=== PATIENT | female | born 1995 | race African-American/Black ===

== ENCOUNTER 2017-08-13 14:14 | Emergency (ER) | payer SELFPAY ==
[2017-08-13 14:21] VITALS: BP 114/64; BMI 21.4
[2017-08-13 15:28] LABS: BILIRUBIN,URINE 1+ (NEGATIVE); BLOOD/HEMOGLOBIN,URINE 3+ (NEGATIVE); GLUCOSE, URINE NEGATIVE (NEGATIVE); KETONES,URINE NEGATIVE (NEGATIVE); LEUKOCYTE ESTERASE ,URINE 2+ (NEGATIVE); NITRITES,URINE NEGATIVE (NEGATIVE); PROTEIN,URINE 2+ (NEGATIVE); UROBILINOGEN,URINE 1+ (NORMAL)
[2017-08-13 15:35] LABS: APPEARANCE,URINE HAZY (CLEAR); COLOR,URINE DARK YELLOW (YELLOW)
[2017-08-13 15:36] LABS: BACTERIA,URINE 1+ /HPF (NEGATIVE); MUCUS,URINE MODERATE /HPF (NEGATIVE); SQUAMOUS EPITHELIAL CELL,UR MANY /HPF (NEGATIVE)
[2017-08-13 16:24] LABS: BASOPHILS % (AUTO) 0.3 % (0.2-1.0); EOSINOPHILS # (AUTO) 0.1 x10^3/uL (0.0-0.2); EOSINOPHILS % (AUTO) 1.3 % (0.9-2.9); HEMATOCRIT 30.6 % (36.0-47.0); HEMOGLOBIN 9.8 g/dL (12.0-16.0); LYMPHOCYTES # (AUTO) 2.3 X10^3/uL (1.3-2.9); LYMPHOCYTES % (AUTO) 21.6 % (21.0-51.0); MEAN CORPUSCULAR HEMOGLOBIN 25.1 pg (27.0-34.0); MEAN CORPUSCULAR HGB CONC 32.2 g/dL (33.0-35.0); MEAN CORPUSCULAR VOLUME 77.8 fL (80.0-100.0); MEAN PLATELET VOLUME 7.5 fL (7.4-11.0); MONOCYTES % (AUTO) 8.9 % (0.0-13.0); NEUTROPHILS # (AUTO) 7.2 x10^3/uL (2.2-4.8); NEUTROPHILS % (AUTO) 67.9 % (42.0-75.0); PLATELET COUNT 321 X10^3/uL (150.0-450.0); RED BLOOD COUNT 3.93 X10^6/uL (3.5-5.4); RED CELL DISTRIBUTION WIDTH 15.8 % (11.6-16.5); WHITE BLOOD COUNT 10.7 X10^3/uL (3.6-10.0)
[2017-08-13 16:31] LABS: BLOOD UREA NITROGEN 11 mg/dL (7-18); CALCIUM 8.4 mg/dL (8.5-10.1); CARBON DIOXIDE 29.4 mmol/L (21-32); CHLORIDE 102 mmol/L (98-107); SODIUM 137 mmol/L (136-145); eGFR BLACK RACES > 60 (>60); eGFR NON BLACK RACES > 60 (>60)
[2017-08-13 16:36] LABS: HYPOCHROMASIA SLIGHT; PLATELET MORPHOLOGY COMMENT NORMAL (NORMAL)
--- NOTE | 2017-08-13 16:50 | ED.ABDFE ---
HPI - Time seen Time seen: 16:30 - PCP Primary Care Physician: NFD - Complaint Chief Complaint Doctors Comments: Patient presents with complaint of abdominal pain of acute onset. Sharp in character, duration since this AM, denies fever, vomiting or diarrhea. Chief Complaint:: PT C/O SUPRA PUBIC PAIN THAT STARTED LASTNIGHT AND PT DENIES ANY N/V/D OR PROBLEMS VOIDING ... PT C/O SHARP PAINS THAT STAY.. - Source History Provided: Patient - Mode of arrival Mode of Arrival: Ambulatory - Timing Onset of Chief Complaint: 08/12/17 PMH - PMH Past Medical History: No Past Surgical History: No - Family History History of Family Medical Conditions: No - Social History Does patient currently use any type of tobacco product: No Have you used tobacco products in the last 12 months: No Type of Tobacco Use: None Does any household member use tobacco: No Alcohol Use: None Do you use any recreational Drugs:: No Lives With: Family Lives Where: Home - infectious screening In the last 2 months have you had wt loss of >10#?: NO Have you had fever, night sweats or hemotysis?: No Have you traveled outside the country in the last 6 months?: No Isolation: Standard ROS - Review of Systems Eyes: No Symptoms Reported ENTM: No Symptoms Reported Respiratoy: No Symptoms Reported Cardiovascular: No Symptoms Reported Gastrointestinal/Abdominal: No Symptoms Reported Genitourinary: No Symptoms Reported Neurological: No Symptoms Reported Musculoskeletal: No Symptoms Reported Integumentary: No Symptoms Reported Hematologic/Lymphatic: No Symptoms Reported Endocrine: No Symptoms Reported Psychiatric: No Symptoms Reported All Other Systems: Reviewed and Negative PE - Vital Signs Vitals: Temperature 98.2 F Pulse Rate 83 Respiratory Rate 20 Blood Pressure 114/64 O2 Sat by Pulse Oximetry 100 - General General Appearance: Alert, In No Apparent Distress - Head Head Exam: Normal Inspection, Atraumatic - Eyes Eye exam: Normal Appearance, PERRL, EOMI - ENT ENT Exam: Normal Exam - Neck Neck Exam: Normal Inspection - Chest Chest Inspection: Normal Inspection - Respiratory Respiratory Exam: Normal Lung Sounds Bilat Respiratory Exam: Bilateral Clear to Auscultation - Cardiovascular Cardiovascular Exam: Regular Rate, Normal Rhythm - Abdominal Exam Abdominal Exam: Tenderness (LLQ) Abdominal Tenderness: LLQ - Rectal Rectal Exam: Deferred - Back Back Exam: Normal Inspection - Extremeties Extremities Exam: Normal Inspection - External Exam: Female: Deferred : Speculum Exam (Female): Deferred : Bimanual Exam (female): Deferred - Neurologic Neurological Exam: Alert, Oriented X3, CN II-XII Intact - Psychiatric Psychiatric Exam: Normal Affect - Skin Skin Exam: Warm, Dry Course - Reevaluation 1st: Improved ROR - Labs Reviewed Result Diagrams: 08/13/17 16:15 08/13/17 16:15 Laboratory: WBC 10.7 X10^3/uL (3.6-10.0) H 08/13/17 16:15 RBC 3.93 X10^6/uL (3.5-5.4) 08/13/17 16:15 Hgb 9.8 g/dL (12.0-16.0) L 08/13/17 16:15 Hct 30.6 % (36.0-47.0) L 08/13/17 16:15 MCV 77.8 fL (80.0-100.0) L 08/13/17 16:15 MCH 25.1 pg (27.0-34.0) L 08/13/17 16:15 MCHC 32.2 g/dL (33.0-35.0) L 08/13/17 16:15 RDW 15.8 % (11.6-16.5) 08/13/17 16:15 Plt Count 321 X10^3/uL (150.0-450.0) 08/13/17 16:15 Plt Count Comment Adequate (ADEQUATE) 08/13/17 16:15 MPV 7.5 fL (7.4-11.0) 08/13/17 16:15 Neut % (Auto) 67.9 % (42.0-75.0) 08/13/17 16:15 Lymph % (Auto) 21.6 % (21.0-51.0) 08/13/17 16:15 [place] % (Auto) 8.9 % (0.0-13.0) 08/13/17 16:15 Eos % (Auto) 1.3 % (0.9-2.9) 08/13/17 16:15 Baso % (Auto) 0.3 % (0.2-1.0) 08/13/17 16:15 Neut # (Auto) 7.2 x10^3/uL (2.2-4.8) H 08/13/17 16:15 Lymph # (Auto) 2.3 X10^3/uL (1.3-2.9) 08/13/17 16:15 [place] # (Auto) 1.0 x10^3/uL (0.3-0.8) H 08/13/17 16:15 Eos # (Auto) 0.1 x10^3/uL (0.0-0.2) 08/13/17 16:15 Baso # (Auto) 0.0 X10^3/uL (0.0-0.1) 08/13/17 16:15 Absolute Nucleated RBC 0.0 /100WBC 08/13/17 16:15 Plt Morphology Comment Normal (NORMAL) 08/13/17 16:15 RBC Morphology Abnormal (NORMAL) A 08/13/17 16:15 Hypochromasia Slight A 08/13/17 16:15 Sodium 137 mmol/L (136-145) 08/13/17 16:15 Corrected Sodium TNP 08/13/17 16:15 Potassium 3.6 mmol/L (3.5-5.1) 08/13/17 16:15 Chloride 102 mmol/L (98-107) 08/13/17 16:15 Carbon Dioxide 29.4 mmol/L (21-32) 08/13/17 16:15 BUN 11 mg/dL (7-18) 08/13/17 16:15 Creatinine 0.70 mg/dL (0.55-1.02) 08/13/17 16:15 Est GFR (MDRD) Af Amer > 60 (>60) 08/13/17 16:15 Est GFR (MDRD) Non-Af > 60 (>60) 08/13/17 16:15 Glucose 89 mg/dL (65-99) 08/13/17 16:15 Calcium 8.4 mg/dL (8.5-10.1) L 08/13/17 16:15 C-Reactive Protein 54.10 mg/L (0-3.0) H 08/13/17 16:15 HCG, Qual Negative <10 mIU/mL 08/13/17 16:15 Specimen Type Random urine 08/13/17 15:18 Urine Color Dark yellow (YELLOW) 08/13/17 15:18 Urine Appearance Hazy (CLEAR) 08/13/17 15:18 Urine pH 6.0 (5.0 - 8.0) 08/13/17 15:18 Ur Specific [place] 1.020 (1.000-1.030) 08/13/17 15:18 Urine Protein 2+ (NEGATIVE) 08/13/17 15:18 Urine Glucose (UA) Negative (NEGATIVE) 08/13/17 15:18 Urine Ketones Negative (NEGATIVE) 08/13/17 15:18 Urine Occult Blood 3+ (NEGATIVE) 08/13/17 15:18 Urine Nitrite Negative (NEGATIVE) 08/13/17 15:18 Urine Bilirubin 1+ (NEGATIVE) 08/13/17 15:18 Urine Urobilinogen 1+ (NORMAL) 08/13/17 15:18 Ur Leukocyte Esterase 2+ (NEGATIVE) 08/13/17 15:18 Urine RBC 8-10 /HPF (NONE SEEN) 08/13/17 15:18 Urine WBC 5-7 /HPF (NONE SEEN) 08/13/17 15:18 Ur Squamous Epith Cells Many /HPF (NEGATIVE) 08/13/17 15:18 Urine Bacteria 1+ /HPF (NEGATIVE) 08/13/17 15:18 Urine Mucus Moderate /HPF (NEGATIVE) 08/13/17 15:18 Ur Culture Indicated? No/not indicated 08/13/17 15:18 - XRAY XRAY Interpreted by: Radiologist (CT Abd/pel w/o contrast:The liver, gallbladder , spleen,adrenal glands, kidneys, pancreas, stomach and small bowel show no acute abdomality. No acute colonic abnormality identified. There is circumaortic left renal vein incidentally noted. Vasculature is otherwise normal. The appendix is normal. Pelvis: The uterus and urinary bladder appear normal. The ructum is normal. There is small to moderate free fluid in the pelvis and peripherally enhancing right cyst with adjacent fluid compatible with corpus luteum cyst or hemorrhagic cyst, possible partially ruptured. Small left ovarian cyst also supected. Impression: Free fluid in the pelvis with large peripherally enhancing right ovarian cyst, possible corpus luteum cyst, possible recently ruptured. Gynecology follow up recommend. No other acute abnormality.) - Diagnosis Discharge Problem: Large right ovarian cyst, Corpus luteum cyst? - Discharge Plan Condition: Stable - Follow ups/Referrals Follow ups/Referrals: NFD,None [Primary Care Provider] - 3 days - Instructions
[2017-08-13 17:05] LABS: SERUM PREGNANCY TEST, QUAL NEGATIVE <10 mIU/mL
[2017-08-13] MEDS ORDERED: NS 100 ML IV 100 ML IV ONE (17:25)
--- NOTE | 2017-08-13 17:48 | CT ---
CT abdomen and pelvis without contrast Indication: Suprapubic pain beginning the previous evening. Technique: Helical images through the abdomen and pelvis after IV contrast. Coronal and sagittal refo rmats provided. Findings: Limited images through the lower chest show no acute abnormality. Review of bone windows sh ows no destructive osseous lesion. Abdomen: The liver, gallbladder, spleen, adrenal glands, kidneys, pancreas, stomach and small bowel s how no acute abnormality. No acute colonic abnormality identified. There is circumaortic left renal v ein incidentally noted. Vasculature is otherwise normal. The appendix is normal. Pelvis: The uterus and urinary bladder appear normal. The rectum is normal. There is small to moderat e free fluid in the pelvis and peripherally enhancing right ovarian cyst with adjacent fluid compatib le with corpus luteum cyst or hemorrhagic cyst, possibly partially ruptured. Small left ovarian cyst also suspected. Impression: 1. Free fluid in the pelvis with large peripherally enhancing right ovarian cyst, possibly corpus lut eum cyst, possibly recently ruptured. Gynecology follow-up recommended. 2. No other acute abnormality. Reported By:
== END 2017-08-13 18:47 | disposition home or self-care (01) ==
LOC: ER 14:26
DX: N83.201 Unspecified ovarian cyst, right side (principal); R10.32 Left lower quadrant pain
CPT/HCPCS: 36415; 74177; 80048; 81001; 84703; 85025; 86140; 96365; 99282; 99283; A4222